=== PATIENT | female | born 1995 | race American Indian/Alaskan Native ===

== ENCOUNTER 2018-06-29 20:47 | Emergency (ER) | payer OTHER ==
[2018-06-29 20:59] VITALS: RESP 18; TEMP 97.9
[2018-06-29] MEDS ORDERED: Sodium Chloride 0.9% 1,000 ML IV STA (20:59)
--- NOTE | 2018-06-29 20:59 | ED PDOC ---
Arrival/HPI - General Historian: Patient - History of Present Illness Narrative History of Present Illness (Text): 06/29/18 20:56 23 y/o female, no significant pmh, nkda, c/o nausea/vomiting after eating the food quickly s/p marijuanna use. Pt. stated that she was using marijuana, felt hungry quickly, had a bowel of soup, nausea/vomiting, no foreign body sensation, no fever or chills, no headache or night sweat, no dizziness, no change in vision, no numbness or tingling, no other medical or psychological complaints. <Danilo Grace - Last Filed: 06/29/18 23:32> <Patrick Ayala - Last Filed: 06/30/18 21:15> - General Time Seen by Provider: 06/29/18 20:48 Past Medical History - Provider Review Nursing Documentation Reviewed: Yes <Danilo Grace - Last Filed: 06/29/18 23:32> Family/Social History - Physician Review Nursing Documentation Reviewed: Yes Family/Social History: Unknown Family HX <Danilo Grace - Last Filed: 06/29/18 23:32> Allergies/Home Meds <Danilo Grace - Last Filed: 06/29/18 23:32> <Patrick Ayala - Last Filed: 06/30/18 21:15> Allergies/Adverse Reactions: Allergies No Known Allergies Allergy (Verified 06/29/18 20:57) Review of Systems - Review of Systems Constitutional: absent: Fatigue, Fevers Eyes: absent: Vision Changes ENT: absent: Hearing Changes Respiratory: absent: SOB, Cough Cardiovascular: absent: Chest Pain Gastrointestinal: Nausea, Vomiting. absent: Abdominal Pain, Diarrhea Musculoskeletal: absent: Arthralgias, Back Pain Skin: absent: Rash, Pruritis Neurological: absent: Headache, Dizziness Psychiatric: absent: Anxiety, Depression, Suicidal Ideation <Danilo Grace - Last Filed: 06/29/18 23:32> Physical Exam - Systems Exam Head: Present: Atraumatic, Normocephalic Pupils: Present: PERRL Extroacular Muscles: Present: EOMI Conjunctiva: Present: Normal Ears: Present: NORMAL TM, Normal Canal. No: Erythema Mouth: Present: Moist Mucous Membranes, Normal Lips, Normal Tounge, Normal Teeth. No: Drooling, Trismus Pharnyx: No: ERYTHEMA, EXUDATE, TONSILS ENLARGED, Muffled/Hoarse Voice, Strider, Soft Palate/Uvular Edema Nose (External): Present: Atraumatic. No: Abrasion, Contusion, Laceration, Lesions, Other Nose (Internal): Present: Normal Inspection, No Active Bleeding. No: Rhinorrhea, Septal Deviation, Septal Hematoma, Epistaxis Neck: Present: Normal Range of Motion Respiratory/Chest: Present: Clear to Auscultation, Good Air Exchange. No: Respiratory Distress, Accessory Muscle Use Cardiovascular: Present: Regular Rate and Rhythm, Normal S1, S2. No: Murmurs Abdomen: Present: Normal Bowel Sounds. No: Tenderness, Distention, Peritoneal Signs, Rebound, Guarding, Rovsing's Sign Present, Scars Back: Present: Normal Inspection Upper Extremity: Present: Normal Inspection. No: Cyanosis, Edema Lower Extremity: Present: Normal Inspection. No: Edema Neurological: Present: GCS=15, CN II-XII Intact, Speech Normal, Motor Func Grossly Intact, Normal Cerebellar Funct, Gait Normal, Memory Normal Skin: Present: Warm, Dry, Normal Color. No: Rashes Psychiatric: Present: Alert, Oriented x 3, Normal Insight, Normal Concentration <Danilo Grace - Last Filed: 06/29/18 23:32> Vital Signs Temp Pulse Resp BP Pulse Ox 06/29/18 23:00 90 18 110/69 100 06/29/18 22:52 90 18 110/69 100 06/29/18 20:59 97.9 F 105 H 18 131/55 L 99 <Patrick Ayala - Last Filed: 06/30/18 21:15> Medical Decision Making ED Course and Treatment: 06/29/18 20:59 -Labs -IVF/pepcid/zofran -Observe and reassess 06/29/18 22:41 -Urine hcg is negative -Labs are non-significant -Pt. feels well, much better, no foreign body sensation, tolerating po solid and fluid, discussed about the labs, wants to be discharged home. -Discharge home with pepcid, zofran, avoid drug abuse, follow up with your own pmd and GI within 2 days, return to the ER for any new or worsening signs or symptoms. <Danilo Grace - Last Filed: 06/29/18 23:32> - Lab Interpretations Lab Results: Total Bilirubin 0.2 mg/dL (0.2-1.3) 06/29/18 22:00 AST 32 U/L (14-36) 06/29/18 22:00 ALT 13 U/L (7-56) 06/29/18 22:00 Alkaline Phosphatase 67 U/L (38-126) 06/29/18 22:00 Total Protein 7.8 g/dL (5.8-8.3) 06/29/18 22:00 Albumin 4.4 g/dL (3.0-4.8) 06/29/18 22:00 Globulin 3.4 gm/dL 06/29/18 22:00 Albumin/Globulin Ratio 1.3 (1.1-1.8) 06/29/18 22:00 Lipase 60 U/L (23-300) 06/29/18 22:00 - Medication Orders Current Medication Orders: Discontinued Medications Famotidine (Pepcid) 20 mg IVP STAT STA Stop: 06/29/18 21:00 Last Admin: 06/29/18 21:30 Dose: 20 mg IVP Administration Document 06/29/18 21:30 AD (Rec: 06/29/18 21:47 [facility] Charges for Administration # of IVP Administrations 1 Sodium Chloride (Sodium Chloride 0.9%) 1,000 mls @ 999 mls/hr IV .Q1H1M STA Stop: 06/29/18 21:59 Last Admin: 06/29/18 21:30 Dose: 999 mls/hr eMAR Start Stop Document 06/29/18 21:30 AD (Rec: 06/29/18 21:47 [facility] Intravenous Solution Start Date 06/29/18 Start Time 21:30 <Patrick Ayala - Last Filed: 06/30/18 21:15> - PA / VALET / Resident Statement / has reviewed & agrees with the documentation as recorded. <Danilo Grace - Last Filed: 06/29/18 23:32> Disposition/Present on Arrival - Present on Arrival Any Indicators Present on Arrival: No History of DVT/PE: No History of Uncontrolled Diabetes: No Urinary Catheter: No History of Decub. Ulcer: No - Disposition Have Diagnosis and Disposition been Completed?: Yes Disposition Time: 22:42 Patient Plan: Discharge <Danilo Grace - Last Filed: 06/29/18 23:32> <Patrick Ayala - Last Filed: 06/30/18 21:15> - Disposition Diagnosis: Drug abuse, Nausea & vomiting Disposition: HOME/ ROUTINE Condition: GOOD Additional Instructions: -Discharge home with pepcid, zofran, avoid drug abuse, follow up with your own pmd and GI within 2 days, return to the ER for any new or worsening signs or symptoms. Prescriptions: Famotidine [Pepcid] 20 mg PO BID #20 tab Ondansetron [Zofran] 4 mg PO Q8H PRN #10 tab PRN Reason: Nausea/Vomiting Referrals: Ray Saavedra MD [Staff Provider] - Follow up with primary [facility] [Outside] - Follow up with primary Forms: WORK NOTE
[2018-06-29 22:07] LABS: BASO # 0.02 K/mm3 (0.0-2.0); BASO % 0.3 % (0.0-3.0); EOS # 0.1 (0.0-0.7); EOS % 0.9 % (1.5-5.0); HEMOGLOBIN 11.4 g/dL (12.0-16.0); LYMPH # 2.9 (1.2-3.4); LYMPH % 41.8 % (22.0-35.0); MEAN CELL VOLUME 80.5 fl (80.0-105.0); MEAN CORPUSCULAR HEMOGLOBIN 26.1 pg (25.0-35.0); MEAN CORPUSCULAR HGB CONC 32.4 g/dl (31.0-37.0); MEAN PLATELET VOLUME 8.6 fl (7.0-11.0); MONO # 0.3 (0.1-0.6); MONO % 4.9 % (1.0-6.0); RBC 4.37 10^6/uL (3.5-6.1); RED CELL DISTRIBUTION WIDTH 13.4 % (11.5-14.5); WHITE BLOOD COUNT 6.9 10^3/uL (4.5-11.0)
[2018-06-29 22:18] LABS: ALB/GLOB RATIO 1.3 (1.1-1.8); ALBUMIN 4.4 g/dL (3.0-4.8); ALT/SGPT 13 U/L (7-56); AST/SGOT 32 U/L (14-36); BLOOD UREA NITROGEN 12 mg/dL (7-21); CALCIUM 9.2 mg/dL (8.4-10.5); GFR NON-AFRICAN AMERICAN > 60; LIPASE 60 U/L (23-300)
[2018-06-29 22:53] VITALS: BP 110/69; PULSE 90; O2SAT 100
== END 2018-06-29 23:00 | disposition home or self-care (01) ==
LOC: ED 20:47
DX: F19.10 Other psychoactive substance abuse, uncomplicated (principal); R11.2 Nausea with vomiting, unspecified
CPT/HCPCS: 80053; 81025; 83690; 85025; 96374; 99284; J7030